=== PATIENT | female | born 1970 | race African-American/Black ===

== ENCOUNTER 2022-02-28 06:16 | Inpatient (IN) | payer MEDICARE ==
[~2022-02-28] VITALS: Ht 162.6 cm; Wt 60.8 kg
[2022-02-28] MEDS ORDERED: IV NORMAL SALINE 1000ML BAG 1,000 ML IV ONE (07:00)
[2022-02-28] MEDS ORDERED: KETOROLAC 15 MG/ML VIAL. IVP ONE (07:00)
[2022-02-28 07:09] LABS: BASO # 0.1 x10^3/uL (0.0-0.2); BASO % 1 % (0-3); CREATININE 0.8 mg/dL (0.6-1.0); EOS # 0.1 x10^3/uL (0.0-0.7); EOS % 0 % (0-3); GFR 75.9; HEMATOCRIT 35.1 % (36.0-47.0); HEMOGLOBIN 11.6 g/dL (12.0-15.5); LYMPH # 1.9 x10^3/uL (1.0-4.8); LYMPH % 9 % (24-48); MEAN CORPUSCULAR HEMOGLOBIN 25 pg (25-35); MEAN CORPUSCULAR HGB CONC 33 g/dL (31-37); MEAN CORPUSCULAR VOLUME 76 fL (79-100); MONO % 5 % (0-9); NEUT # 17.5 x10^3/uL (1.8-7.7); NEUT % 85 % (31-73); PLATELET COUNT 357 x10^3/uL (140-400); RED BLOOD COUNT 4.61 x10^6/uL (3.50-5.40); RED CELL DISTRIBUTION WIDTH 13.2 % (11.5-14.5); WHITE BLOOD COUNT 20.5 x10^3/uL (4.0-11.0)
[2022-02-28 07:15] LABS: ALBUMIN 2.5 g/dL (3.4-5.0); ALBUMIN/GLOBULIN RATIO 0.4 (1.0-1.7); TOTAL BILIRUBIN 0.6 mg/dL (0.2-1.0); TOTAL PROTEIN 8.6 g/dL (6.4-8.2)
--- NOTE | 2022-02-28 07:25 | PHYS DOC ---
Past Medical History Past Medical History: AIDS, HIV Past Surgical History: Oophorectomy Smoking Status: Current Every Day Smoker Alcohol Use: Rarely General Adult EDM: Chief Complaint: Palpitations HPI: HPI: Past medical history significant for HIV, medicated, last viral load undetectable. Patient is a 52 year old f who presents with 3 days of fatigue, chills, body aches, cough and fevers. Patient comes to the ER this morning because she has right-sided chest pain, worse with coughing, sharp, nonradiating as well as numbness and tingling in her left upper extremity that comes and goes and is not associated with any weakness. Patient did not get her COVID-vaccine. Patient is not aware of any sick contacts. Review of Systems: Review of Systems: Constitutional: fever and chills. [] Eyes: Denies change in visual acuity. [] HENT: Denies nasal congestion or sore throat. [] Respiratory: cough, denies shortness of breath. [] Cardiovascular: chest pain, denies edema. [] GI: Denies abdominal pain, nausea, vomiting, bloody stools or diarrhea. [] : Denies dysuria. [] Musculoskeletal: back pain and joint pain. [] Integument: Denies rash. [] Neurologic: Denies headache, focal weakness. [] Endocrine: Denies polyuria or polydipsia. [] Lymphatic: Denies swollen glands. [] Psychiatric: Denies depression or anxiety. [] Heart Score: C/O Chest Pain: Yes HEART Score for Chest Pain: HEART Score for Chest Pain Response (Comments) Value History Slighlty/Non-Suspicious 0 ECG Nonspecific Repolarizatio 1 Age >45 - < 65 1 Risk Factors 1 or 2 Risk Factors 1 Total 3 Risk Factors: Risk Factors: DM, Current or recent (<one month) smoker, HTN, HLP, family history of CAD, obesity. Risk Scores: Score 0 - 3: 2.5% MACE over next 6 weeks - Discharge Home Score 4 - 6: 20.3% MACE over next 6 weeks - Admit for Clinical Observation Score 7 - 10: 72.7% MACE over next 6 weeks - Early Invasive Strategies Current Medications: Current Medications Medications (Trade) Dose Ordered Sig/Real Start Time Stop Time Status Last Admin Dose Admin Ketorolac Tromethamine (Toradol 15mg Vial) 15 mg 1X ONCE 02/28/22 07:00 02/28/22 07:01 DC 02/28/22 06:57 15 MG Sodium Chloride 1,000 ml @ 1,000 mls/hr 1X ONCE 02/28/22 07:00 02/28/22 07:59 02/28/22 06:57 1,000 MLS/HR Allergies: Allergies: Allergies Coded Allergies Type Severity Reaction Last Updated Verified Penicillins Allergy Severe Rash 02/28/22 Yes Sulfa (Sulfonamide Antibiotics) Allergy Severe Rash 02/28/22 Yes Physical Exam: PE: Constitutional: Well developed, well nourished, no acute distress, non-toxic appearance. [] HENT: Normocephalic, atraumatic, bilateral external ears normal, oropharynx moist, no oral exudates, nose normal. [] Eyes: PERRLA, EOMI, conjunctiva normal, no discharge. [] Neck: Normal range of motion, no tenderness, supple, no stridor. [] Cardiovascular:Heart rate regular rhythm, no murmur [] Lungs & Thorax: Bilateral breath sounds clear to auscultation [] Abdomen: Bowel sounds normal, soft, no tenderness, no masses, no pulsatile masses. [] Skin: Warm, dry, no erythema, no rash. [] Back: No tenderness, no CVA tenderness. [] Extremities: No tenderness, no cyanosis, no clubbing, ROM intact, no edema. [] Neurologic: Alert and oriented X 3, normal motor function, normal sensory function, no focal deficits noted. [] Psychologic: Affect normal, judgement normal, mood normal. [] Current Patient Data: Labs: Laboratory Tests Test 02/28/22 06:31 02/28/22 06:44 White Blood Count 20.5 x10^3/uL (4.0-11.0) H Red Blood Count 4.61 x10^6/uL (3.50-5.40) Hemoglobin 11.6 g/dL (12.0-15.5) L Hematocrit 35.1 % (36.0-47.0) L Mean Corpuscular Volume 76 fL (79-100) L Mean Corpuscular Hemoglobin 25 pg (25-35) Mean Corpuscular Hemoglobin Concent 33 g/dL (31-37) Red Cell Distribution Width 13.2 % (11.5-14.5) Platelet Count 357 x10^3/uL (140-400) Neutrophils (%) (Auto) 85 % (31-73) H Lymphocytes (%) (Auto) 9 % (24-48) L Monocytes (%) (Auto) 5 % (0-9) Eosinophils (%) (Auto) 0 % (0-3) Basophils (%) (Auto) 1 % (0-3) Neutrophils # (Auto) 17.5 x10^3/uL (1.8-7.7) H Lymphocytes # (Auto) 1.9 x10^3/uL (1.0-4.8) Monocytes # (Auto) 1.0 x10^3/uL (0.0-1.1) Eosinophils # (Auto) 0.1 x10^3/uL (0.0-0.7) Basophils # (Auto) 0.1 x10^3/uL (0.0-0.2) Platelet Estimate Pending Sodium Level 136 mmol/L (136-145) Potassium Level 3.0 mmol/L (3.5-5.1) L Chloride Level 101 mmol/L (98-107) Carbon Dioxide Level 25 mmol/L (21-32) Anion Gap 10 (6-14) Blood Urea Nitrogen 9 mg/dL (7-20) Creatinine 0.8 mg/dL (0.6-1.0) Estimated GFR (Cockcroft-Gault) 75.9 BUN/Creatinine Ratio 11 (6-20) Glucose Level 108 mg/dL (70-99) H Calcium Level 9.0 mg/dL (8.5-10.1) Total Bilirubin 0.6 mg/dL (0.2-1.0) Aspartate Amino Transferase (AST) 12 U/L (15-37) L Alanine Aminotransferase (ALT) 15 U/L (14-59) Alkaline Phosphatase 129 U/L (46-116) H Total Protein 8.6 g/dL (6.4-8.2) H Albumin 2.5 g/dL (3.4-5.0) L Albumin/Globulin Ratio 0.4 (1.0-1.7) L SARS-CoV-2 Antigen (Rapid) Negative (NEGATIVE) Laboratory Tests 02/28/22 06:31 Laboratory Tests 02/28/22 06:31 Vital Signs: Vital Signs Date Time Temp Pulse Resp B/P (MAP) Pulse Ox O2 Delivery O2 Flow Rate FiO2 02/28/22 06:26 100.8 125 18 128/59 (82) 97 Room Air 100.8 EKG: EKG: EKG done at 0628, sinus tachycardia at a rate of 126, normal axis, normal intervals, nonspecific T wave changes, no ST elevations or depressions Radiology/Procedures: Radiology/Procedures: Portable chest x-ray Impression: Right upper lobe pneumonia Course & Med Decision Making: Course & Med Decision Making Pertinent Labs and Imaging studies reviewed. (See chart for details) Patient with low-grade fevers, likely viral versus bacterial infection. Will swab for COVID and influenza, chest x-ray to look for possible bacterial pneumonia, troponin to rule out ACS, treat symptoms with IV fluid and Toradol. At this time patient's vital signs very stable, pending troponin anticipate likely discharge with close follow-up with her primary doctor who manages her HIV. Patient's white blood cell count elevated to 20, chest x-ray significant for right upper lobe consolidation consistent with pneumonia. Patient is penicillin allergic and so will get IV levofloxacin instead of ceftriaxone and azithromycin. Will admit the patient for lobar pneumonia. Dragon Disclaimer: [facility] Disclaimer: This electronic medical record was generated, in whole or in part, using a voice recognition dictation system. Departure Departure Impression: Primary Impression: Lobar pneumonia Additional Impressions: Chest pain Qualified Codes: R07.1 - Chest pain on breathing Tachycardia Fever Qualified Codes: R50.9 - Fever, unspecified Disposition: ADMITTED INPATIENT Condition: STABLE SAM GONZALEZ MD February 28, 2022 07:25
--- NOTE | 2022-02-28 07:30 | RAD ---
XR CHEST 1V History: Reason: R sided chest pain / Spl. Instructions: / History: Comparison: None. Findings: Right upper lobe consolidation. No pleural effusion. No pneumothorax. Normal heart size. Impression: 1. Right upper lobe pneumonia. Recommend follow-up to ensure resolution. Electronically signed by: Master Miles DO (02/28/2022 7:27 AM) [facility] [place]
[2022-02-28] MEDS ORDERED: IV NORMAL SALINE 1000ML BAG 1,000 ML IV SCH ×2 (08:45→10:45)
[2022-02-28] MEDS ORDERED: ACETAMINOPHEN 325 MG TABLET. PO PRN ×2 (08:45→10:45)
[2022-02-28 10:05] VITALS: BP 115/59
[2022-02-28] MEDS ORDERED: DOCUSATE SODIUM 100 MG CAPSULE. PO PRN (10:45)
[2022-02-28] MEDS ORDERED: PROCHLORPERAZINE 10 MG/2 ML VIAL. IV PRN (10:45)
[2022-02-28] MEDS ORDERED: oxyCODONE/APAP 5/325 1 TAB TABLET PO PRN (10:45)
[2022-02-28] MEDS ORDERED: LORazepam 0.5 MG TABLET PO PRN (10:45)
[2022-02-28] MEDS ORDERED: DEXTROSE 50% 25 GM / 50ML DISP.SYRIN. IV PRN (10:45)
[2022-02-28] MEDS: IV NORMAL SALINE 1000ML BAG 1,000 ML IV SCH ×2 (10:45→17:14)
[2022-02-28] MEDS ORDERED: MORPHINE SULFATE 2 MG/ML INJ. IV PRN (10:45)
[2022-02-28] MEDS ORDERED: diphenhydrAMINE 50 MG/ML VIAL IVP PRN (10:45)
[2022-02-28] MEDS ORDERED: diphenhydrAMINE HCL 25 MG CAPSULE PO PRN ×2 (10:45)
[2022-02-28] MEDS ORDERED: ONDANSETRON PF 4 MG/2 ML VIAL. IVP PRN (10:45)
[2022-02-28] MEDS ORDERED: ZOLPIDEM 5 MG TABLET. PO PRN (10:45)
[2022-02-28] MEDS ORDERED: ENOXAPARIN 40 MG/0.4 ML SYRINGE. SQ SCH (10:45)
[2022-02-28] MEDS ORDERED: SENNOSIDES 8.6 MG TABLET PO PRN (10:45)
--- NOTE | 2022-02-28 10:45 | PDOC1 ---
History and Physical Date of Service: DOS: DATE: 02/28/22 TIME: 10:36 Chief Complaint: Chief Complain: Multiple symptoms History of Present Illness: HPI: 52-year-old female with past medical history of HIV currently on Stribild and states that her last viral count was undetectable comes in with a week's worth of progressively worsening symptoms. She initially started out with right upper quadrant pain in which she kind of radiated towards her right flank. Couple days later she had progressive worsening of cough with chills and fevers and body aches. Cough was nonproductive. She did not come in right away mainly because she did not have a ride to bring her in. She currently denies any chest pain, nausea vomiting, abdominal pain, diarrhea, hematuria or dysuria. Patient is not vaccinated for COVID. Denies any recent sick contacts or recent travel. Past Medical/Surgical History: PMH/PSH: Past Medical History: AIDS, HIV Past Surgical History: Oophorectomy Allergies: Allergies: Coded Allergies: Penicillins (Verified Allergy, Severe, Rash, 02/28/22) Sulfa (Sulfonamide Antibiotics) (Verified Allergy, Severe, Rash, 02/28/22) Family History: Family History: Reviewed with no relative findings in the chart Social History: Social History: Smoking Status: Current Every Day Smoker Alcohol Use: Rarely Current Medications: Current Medications Current Medications Sodium Chloride 1,000 ml @ 1,000 mls/hr 1X ONCE IV Last administered on 02/28/22at 06:57; Start 02/28/22 at 07:00; Stop 02/28/22 at 07:59; Status DC Ketorolac Tromethamine (Toradol 15mg Vial) 15 mg 1X ONCE IVP Last administered on 02/28/22at 06:57; Start 02/28/22 at 07:00; Stop 02/28/22 at 07:01; Status DC Levofloxacin/ Dextrose 100 ml @ 100 mls/hr 1X ONCE IV Last administered on 02/28/22at 08:45; Start 02/28/22 at 08:45; Stop 02/28/22 at 09:44; Status DC Sodium Chloride 1,000 ml @ 500 mls/hr Q2H IV Last administered on 02/28/22at 09:21; Start 02/28/22 at 08:45; Stop 02/28/22 at 10:44 Acetaminophen (Tylenol) 650 mg PRN Q4HRS PRN PO FEVER > 100.3'F; Start 02/28/22 at 08:45; Stop 03/01/22 at 08:44 Sodium Chloride 1,000 ml @ 100 mls/hr Q10H IV ; Start 02/28/22 at 10:45 ROS: Review of Systems Review of System REVIEW OF SYSTEMS: GENERAL: Denies weakness SKIN: No bruising, hair changes or rashes. EYES: No blurred, double or loss of vision. NOSE AND THROAT: No history of nosebleeds, hoarseness or sore throat. HEART: No history of palpitations, chest pain or shortness of breath on exertion. LUNGS: Positive for flulike symptoms and shortness of breath GASTROINTESTINAL: Denies changes in appetite, nausea, vomiting, diarrhea or constipation. GENITOURINARY: No history of frequency, urgency, hesitancy or nocturia. NEUROLOGIC: Denies history of numbness, tingling, or tremor. PSYCHIATRIC: No history of panic, anxiety or depression. ENDOCRINE: No history of heat or cold intolerance, polyuria or polydipsia. EXTREMITIES: Denies joint pain, pain on walking or stiffness. Physical Exam: Vital Signs: Vital Signs Date Time Temp Pulse Resp B/P (MAP) Pulse Ox O2 Delivery O2 Flow Rate FiO2 02/28/22 08:00 98.9 100 16 128/59 (82) 98 Room Air 98.9 Physcial Exam: GEN: No apparent distress. Alert and oriented HEENT: Normal cephalic, atraumatic, external auditory canals are patent EYES: Extraocular muscles are intact, pupil are equally round and reactive to light and accommodation MUSCULOSKELETAL: Well developed , well nourished, good range of motion ENDOCRINE: No thyromegaly was palpated LYMPHATICS: No cervical chain or axillary nodes were noted HEMATOPOIETIC: No bruising NECK: Supple, no JVD, no thyromegaly was noted LUNGS: Clear to auscultation in all lung lamb without rhonchi or wheezing HEART: RRR, S!, S2 present. Peripheral pulses intact, no obvious murmurs noted ABDOMEN: Soft, nontender. Positive bowel sounds, no organomegaly, normal bowel sounds EXTREMITIES: Without clubbing, cyanosis, or edema. Pedal pulses intact. Negative Homans sign NEUROLOGIC: Normal speech and tone. A&O x 3, moves all extremities, no obvious focal deficits PSYCHIATRIC: Normal affect, normal mood. Stable SKIN: No ulcerations or rashes, good skin turgor, no jaundice VASCULAR: Good capillary refill, neurovascular bundle appears to be intact Labs: Labs: Laboratory Tests Test 02/28/22 06:31 02/28/22 06:44 White Blood Count 20.5 x10^3/uL (4.0-11.0) Red Blood Count 4.61 x10^6/uL (3.50-5.40) Hemoglobin 11.6 g/dL (12.0-15.5) Hematocrit 35.1 % (36.0-47.0) Mean Corpuscular Volume 76 fL (79-100) Mean Corpuscular Hemoglobin 25 pg (25-35) Mean Corpuscular Hemoglobin Concent 33 g/dL (31-37) Red Cell Distribution Width 13.2 % (11.5-14.5) Platelet Count 357 x10^3/uL (140-400) Neutrophils (%) (Auto) 85 % (31-73) Lymphocytes (%) (Auto) 9 % (24-48) Monocytes (%) (Auto) 5 % (0-9) Eosinophils (%) (Auto) 0 % (0-3) Basophils (%) (Auto) 1 % (0-3) Neutrophils # (Auto) 17.5 x10^3/uL (1.8-7.7) Lymphocytes # (Auto) 1.9 x10^3/uL (1.0-4.8) Monocytes # (Auto) 1.0 x10^3/uL (0.0-1.1) Eosinophils # (Auto) 0.1 x10^3/uL (0.0-0.7) Basophils # (Auto) 0.1 x10^3/uL (0.0-0.2) D-Dimer (Odalys) 3.33 ug/mlFEU (0.00-0.50) Sodium Level 136 mmol/L (136-145) Potassium Level 3.0 mmol/L (3.5-5.1) Chloride Level 101 mmol/L (98-107) Carbon Dioxide Level 25 mmol/L (21-32) Anion Gap 10 (6-14) Blood Urea Nitrogen 9 mg/dL (7-20) Creatinine 0.8 mg/dL (0.6-1.0) Estimated GFR (Cockcroft-Gault) 75.9 BUN/Creatinine Ratio 11 (6-20) Glucose Level 108 mg/dL (70-99) Calcium Level 9.0 mg/dL (8.5-10.1) Total Bilirubin 0.6 mg/dL (0.2-1.0) Aspartate Amino Transf (AST/SGOT) 12 U/L (15-37) Alanine Aminotransferase (ALT/SGPT) 15 U/L (14-59) Alkaline Phosphatase 129 U/L (46-116) Total Protein 8.6 g/dL (6.4-8.2) Albumin 2.5 g/dL (3.4-5.0) Albumin/Globulin Ratio 0.4 (1.0-1.7) SARS-CoV-2 Antigen (Rapid) Negative (NEGATIVE) Laboratory Tests Test 02/28/22 06:31 02/28/22 06:44 White Blood Count 20.5 x10^3/uL (4.0-11.0) Red Blood Count 4.61 x10^6/uL (3.50-5.40) Hemoglobin 11.6 g/dL (12.0-15.5) Hematocrit 35.1 % (36.0-47.0) Mean Corpuscular Volume 76 fL (79-100) Mean Corpuscular Hemoglobin 25 pg (25-35) Mean Corpuscular Hemoglobin Concent 33 g/dL (31-37) Red Cell Distribution Width 13.2 % (11.5-14.5) Platelet Count 357 x10^3/uL (140-400) Neutrophils (%) (Auto) 85 % (31-73) Lymphocytes (%) (Auto) 9 % (24-48) Monocytes (%) (Auto) 5 % (0-9) Eosinophils (%) (Auto) 0 % (0-3) Basophils (%) (Auto) 1 % (0-3) Neutrophils # (Auto) 17.5 x10^3/uL (1.8-7.7) Lymphocytes # (Auto) 1.9 x10^3/uL (1.0-4.8) Monocytes # (Auto) 1.0 x10^3/uL (0.0-1.1) Eosinophils # (Auto) 0.1 x10^3/uL (0.0-0.7) Basophils # (Auto) 0.1 x10^3/uL (0.0-0.2) D-Dimer (Odalys) 3.33 ug/mlFEU (0.00-0.50) Sodium Level 136 mmol/L (136-145) Potassium Level 3.0 mmol/L (3.5-5.1) Chloride Level 101 mmol/L (98-107) Carbon Dioxide Level 25 mmol/L (21-32) Anion Gap 10 (6-14) Blood Urea Nitrogen 9 mg/dL (7-20) Creatinine 0.8 mg/dL (0.6-1.0) Estimated GFR (Cockcroft-Gault) 75.9 BUN/Creatinine Ratio 11 (6-20) Glucose Level 108 mg/dL (70-99) Calcium Level 9.0 mg/dL (8.5-10.1) Total Bilirubin 0.6 mg/dL (0.2-1.0) Aspartate Amino Transf (AST/SGOT) 12 U/L (15-37) Alanine Aminotransferase (ALT/SGPT) 15 U/L (14-59) Alkaline Phosphatase 129 U/L (46-116) Total Protein 8.6 g/dL (6.4-8.2) Albumin 2.5 g/dL (3.4-5.0) Albumin/Globulin Ratio 0.4 (1.0-1.7) SARS-CoV-2 Antigen (Rapid) Negative (NEGATIVE) Images: Images PROCEDURE: PORTABLE CHEST 1V XR CHEST 1V History: Reason: R sided chest pain / Spl. Instructions: / History: Comparison: None. Findings: Right upper lobe consolidation. No pleural effusion. No pneumothorax. Normal heart size. Impression: 1. Right upper lobe pneumonia. Recommend follow-up to ensure resolution. Assessment/Plan Assessment/Plan Sepsis Right upper lobe pneumonia, possible gram-negative organisms Hypokalemia Microcytic anemia, likely NELSON Elevated alkaline phosphatase History of HIV, last viral load was undetectable according to the patient. Admit to hospitalist service for further management Continue empiric IV antibiotics Pending abdominal ultrasound Pending MRSA and Legionella urine antigen PO and IV electrolyte replacement as needed Pending ferritin levels Lovenox for DVT prophylaxis Cardiac diet CODE STATUS full Discussed with RN and SW Disposition inpatient management as above DPOA: Undesignated Justifications for Admission Other Justification PATRICK LLOYD MD February 28, 2022 10:45
[2022-02-28 11:04] LABS: % BANDS 8 % (0-9); % LYMPHS 11 % (24-48); % MONOS 5 % (0-10); % SEGS 76 % (35-66)
[2022-02-28 11:05] LABS: PLT ESTIMATE ADEQUATE (ADEQUATE)
[2022-02-28 11:06] LABS: TOXIC GRANULATION PRESENT; TOXIC VACUOLATION PRESENT
--- NOTE | 2022-02-28 11:29 | EKG ---
[facility] [address] [place] [address] Test Date: 2022-02-28 Test Time: 06:28:42 Pat Name: GÓMEZ DALY Department: Room: 6 1 Gender: F [employer]: : [id number] Requested By: SAM GONZALEZ Order Number: [id number] Reading MD: Pipe Martínez MD Measurements Intervals [place] Rate: 126 P: -109 [place]: 118 QRS: 51 QRSD: 78 T: 67 QT: 352 QTc: 510 Interpretive Statements SR CRYSTAL NON-SPECIFIC ST/T CHANGES Electronically Signed On 02-28-2022 11:29:38 CDT by Pipe Martínez MD
[2022-02-28] MEDS ORDERED: ELVI1TAB2 PO (11:57)
[2022-02-28] MEDS: POTASSIUM CHLORIDE 20 MEQ TABLET.ER. PO SCH ×2 (12:01→20:25)
[2022-02-28 14:26] VITALS: BP 105/63
[2022-02-28] MEDS: IPRATRPIUM/ALBUTEROL 0.5/2.5MG 3 ML NEBU. NEB SCH ×3 (15:40→21:21)
[2022-02-28 18:05] VITALS: BP 108/58
[2022-02-28 22:14] VITALS: BP 102/50
[2022-03-01] MEDS ORDERED: STRIBILD TABLET PO SCH (09:00)
== END 2022-03-01 | disposition home or self-care (01) | DRG 976 ==
LOC: ER 06:16 → 6 SOUTH 08:40
PROVIDERS: ADMIT Internal Medicine; ATTEND Internal Medicine
DX: B20 Human immunodeficiency virus [HIV] disease (principal); A41.9 Sepsis, unspecified organism; J18.9 Pneumonia, unspecified organism; Z20.822 Contact with and (suspected) exposure to COVID-19; E87.6 Hypokalemia; F17.200 Nicotine dependence, unspecified, uncomplicated; D50.9 Iron deficiency anemia, unspecified; Z88.0 Allergy status to penicillin; Z88.2 Allergy status to sulfonamides; Z90.79 Acquired absence of other genital organ(s); Z79.899 Other long term (current) drug therapy
CPT/HCPCS: 36415; 71045; 76700; 80053; 82728; 84145; 85007; 85025; 85379; 87426; 87449; 87641; 93005; 94640; 94660; 94760; 96361; 96365; 96375; J1650; J1885; J1956; J7030; 99285-25; G0378